=== PATIENT | male | born 1945 | race Caucasian/White ===

== ENCOUNTER 2016-07-04 17:10 | Emergency (ER) | payer OTHER ==
[2016-07-04 17:27] VITALS: BP 134/62; PULSE 75; RESP 18; TEMP 99; O2SAT 97
[2016-07-04] MEDS ORDERED: IBUPROFEN 600 MG TAB PO ONE (18:33)
--- NOTE | 2016-07-04 19:12 | UCPHY ---
H & P Time Seen by Provider: 07/04/16 19:03 Patient Type: Established HPI/ROS: 70-year-old male presents complaining of nasal congestion and sinus pain several days duration. Review of systems As per HPI-nasal congestion, sinus pain General no fever no chills no weakness HEENT no eye pain no eye discharge. No eye redness, no sore throat Respiratory no cough, no shortness of breath Cardiac no chest pain, no peripheral edema GI no abdominal pain, no diarrhea, no constipation, no nausea, no vomiting no flank pain, no hematuria, no dysuria Musculoskeletal no myalgias, no joint pain Heme no easy bruising, no easy bleeding Endo no polyuria, no polydipsia Skin no rashes, no pruritus Neuro no syncope, no dizziness, no headaches Psych is no suicidal ideation, no homicidal ideation Past Medical/Surgical History: Noncontributory Social History: Alcohol socially, denies drug use Smoking Status: Never smoked Physical Exam: 70-year-old male Alert and oriented nontoxic appearance, no acute distress afebrile Atraumatic normocephalic Extraocular muscles intact, anicteric Nares mild yellowish discharge, nasal turbinates swelling left greater than right erythematous Oropharynx mild erythema no tonsillar swelling no exudate no uvular deviation, tolerating own secretions Neck supple no lymphadenopathy Lungs clear to auscultation bilaterally Heart regular rate and rhythm Abdomen normoactive bowel sounds soft nontender Extremities no cyanosis clubbing or edema Skin no rash Constitutional: Initial Vital Signs Temperature (C) 37.2 C 07/04/16 17:25 Heart Rate 75 07/04/16 17:25 Respiratory Rate 18 07/04/16 17:25 Blood Pressure 134/62 H 07/04/16 17:25 O2 Sat (%) 97 07/04/16 17:25 O2 Delivery Mode Room Air Allergies/Adverse Reactions: No Known Allergies Allergy (Verified 05/08/15 14:56) Home Medications: Medication Instructions Recorded Amoxicillin/Clavulanate Pot 875 mg PO BID #14 tab 07/04/16 [Augmentin 875 MG TAB (*)] Fluticasone Nasal [Flonase Nasal 2 sprays NS DAILY 7 Days 07/04/16 [place]] Medical Decision Making ED Course/Re-evaluation: Patient seen and evaluated for nasal congestion, sinus pain Differential diagnosis considered URI, bronchitis, viral syndrome, sinusitis, pneumonia Physical exam consistent with sinusitis Impression sinusitis Plan Augmentin fluticasone decongestant Follow up with primary care physician - Data Points Medications Given: Discontinued Medications Ibuprofen (Motrin) 600 mg PO EDNOW ONE Stop: 07/04/16 18:34 Last Admin: 07/04/16 18:40 Dose: 600 mg Departure - Departure Disposition: Home, Routine, Self-Care Clinical Impression: Sinusitis Condition: Good Instructions: Sinusitis (ED) Referrals: Glen Mak DO [Primary Care Provider] - As per Instructions Prescriptions: Amoxicillin/Clavulanate Pot [Augmentin 875 MG TAB (*)] 875 mg PO BID #14 tab Fluticasone Nasal [Flonase Nasal [place]] 2 sprays NS DAILY 7 Days - PQRS PQRS Measurement: na
== END 2016-07-04 19:15 | disposition home or self-care (01) ==
LOC: CED 17:10
DX: J01.90 Acute sinusitis, unspecified (principal)
CPT/HCPCS: 99214-PO; G0463-PO

== ENCOUNTER 2016-10-24 12:06 | Emergency (ER) | payer OTHER ==
[2016-10-24 12:55] LABS: BACTERIA 4+ /hpf (NONE SEEN); MUCUS 4+ /lpf (NONE-1+); RBC,URINE 15-25 /hpf (0-3)
[2016-10-24] MEDS ORDERED: NS 1,000 ML IV ONE (14:05)
--- NOTE | 2016-10-24 14:07 | EDPHY ---
HPI/HX/ROS/PE/MDM Narrative: CHIEF COMPLAINT: Hematuria HPI: The patient is a 71-year-old who complains of hematuria this morning. He notes very mild right lower quadrant pain. No flank pain. Over the past 10 days the patient reports difficulty emptying his bladder. The patient has a history of kidney stone 10 years ago. He was able to pass the stone without complication. He denies fever, nausea, vomiting, or diarrhea. REVIEW OF SYSTEMS: Aside from elements discussed in the HPI, a comprehensive 10-point review of systems was reviewed and is negative. PMH: Kidney stone SOCIAL HISTORY: . 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 PHYSICAL EXAM: General: Patient is alert, in no acute distress. ENT: Eyes are normal to inspection. ENT inspection normal. Neck: Normal inspection. Full range of motion. Respiratory: No respiratory distress. Breath sounds normal bilaterally. Cardiovascular: Regular rate and rhythm. Strong peripheral pulses. Abdomen: The abdomen is nontender to palpation. There are no peritoneal signs. There are normal bowel sounds. Back: Normal to inspection. No tenderness to palpation. No CVA tenderness. Skin: Normal color. No rash. Warm and dry. Extremities: Normal appearance. Full range of motion. Neuro: Oriented x3. Normal motor function. Normal sensory function. ED Course: Patient with history of kidney stone, presents with hematuria that started this morning. On exam patient has a benign abdominal exam, no CVA tenderness. UA reveals RBCs, WBCs, and bacteria. Plan to check additional lab work. CT abdomen/pelvis was ordered to look for stone. Pt has normal WBC. Lab work is otherwise unremarkable. CT abdomen/pelvis is negative for stone. Plan to discharge patient home with urology followup. MDM: This patient presents with hematuria. I doubt UTI but will prescribe Keflex as a precaution given presence of some WBCs in the urine. No stone is seen. The patient will need outpatient Urology consult and was referred to on-call Urology. - Data Points Imaging Results: Imaging Impressions Abdomen/Pelvis CT 10/24/16 14:05 Impression: 1. Tiny nonobstructive calculus inferior pole of the right kidney. No evidence for hydronephrosis in either kidney or evidence for ureterolithiasis. 2. Benign renal cortical cysts left kidney. 3. Enlarged nonspecific prostate. 4. Other chronic findings as above. Results called and discussed with Dr. Lonnie Dobbins, on October 24, 2016 at 1521 hours. Attention: This CT examination is specifically designed to evaluate patients who are clinically suspected of having acute obstructive uropathy. This examination does not use radiographic contrast, and as such, provides only a limited evaluation of the abdomen, pelvis and retroperitoneum. If there is further clinical suspicion for pathological conditions other than obstructive uropathy, a complete CT evaluation of the abdomen and pelvis utilizing intravenous, oral, and rectal contrast should be considered. Imaging: Discussed imaging studies w/ illusionist Radiologist, I viewed and interpreted images myself Laboratory Results: Laboratory Results 10/24/16 14:10 10/24/16 14:10 10/24/16 10/24/16 10/24/16 14:10 14:10 14:10 WBC 5.94 10^3/uL 10^3/uL (3.80-9.50) RBC 5.13 10^6/uL 10^6/uL (4.40-6.38) Hgb 15.4 g/dL g/dL (13.7-17.5) Hct 45.2 % % (40.0-51.0) MCV 88.1 fL fL (81.5-99.8) MCH 30.0 pg pg (27.9-34.1) MCHC 34.1 g/dL g/dL (32.4-36.7) RDW 13.2 % % (11.5-15.2) Plt Count 136 10^3/uL L 10^3/uL (150-400) MPV 11.7 fL fL (8.7-11.7) Neut % (Auto) 50.0 % % (39.3-74.2) Lymph % (Auto) 37.0 % % (15.0-45.0) [place] % (Auto) 10.3 % % (4.5-13.0) Eos % (Auto) 1.7 % % (0.6-7.6) Baso % (Auto) 0.7 % % (0.3-1.7) Nucleat RBC Rel Count 0.0 % % (0.0-0.2) Absolute Neuts (auto) 2.97 10^3/uL 10^3/uL (1.70-6.50) Absolute Lymphs (auto) 2.20 10^3/uL 10^3/uL (1.00-3.00) Absolute Monos (auto) 0.61 10^3/uL 10^3/uL (0.30-0.80) Absolute Eos (auto) 0.10 10^3/uL 10^3/uL (0.03-0.40) Absolute Basos (auto) 0.04 10^3/uL 10^3/uL (0.02-0.10) Absolute Nucleated RBC 0.00 10^3/uL 10^3/uL (0-0.01) Immature Gran % 0.3 % % (0.0-1.1) Immature Gran # 0.02 10^3/uL 10^3/uL (0.00-0.10) PT 13.6 SEC SEC (12.0-15.0) INR 1.05 (0.83-1.16) APTT 23.0 SEC SEC (23.0-38.0) Sodium 143 mEq/L mEq/L (134-144) Potassium 4.2 mEq/L mEq/L (3.5-5.2) Chloride 110 mEq/L mEq/L (97-110) Carbon Dioxide 22 mEq/l mEq/l (22-31) Anion Gap 11 mEq/L mEq/L (8-16) BUN 29 mg/dL H mg/dL (7-23) Creatinine 1.0 mg/dL mg/dL (0.7-1.3) Estimated GFR > 60 Glucose 89 mg/dL mg/dL (70-100) Calcium 9.4 mg/dL mg/dL (8.5-10.4) Urine RBC Urine WBC Ur Epithelial Cells Urine Bacteria Urine Mucus 10/24/16 12:40 WBC RBC Hgb Hct MCV MCH MCHC RDW Plt Count MPV Neut % (Auto) Lymph % (Auto) [place] % (Auto) Eos % (Auto) Baso % (Auto) Nucleat RBC Rel Count Absolute Neuts (auto) Absolute Lymphs (auto) Absolute Monos (auto) Absolute Eos (auto) Absolute Basos (auto) Absolute Nucleated RBC Immature Gran % Immature Gran # PT INR APTT Sodium Potassium Chloride Carbon Dioxide Anion Gap BUN Creatinine Estimated GFR Glucose Calcium Urine RBC 15-25 /hpf H /hpf (0-3) Urine WBC 10-15 /hpf H /hpf (0-3) Ur Epithelial Cells TRACE /lpf /lpf (NONE-1+) Urine Bacteria 4+ /hpf H /hpf (NONE SEEN) Urine Mucus 4+ /lpf H /lpf (NONE-1+) Medications Given: Discontinued Medications Sodium Chloride (Ns) 1,000 mls @ 0 mls/hr IV EDNOW ONE; Wide Open PRN Reason: Protocol Stop: 10/24/16 14:06 Last Admin: 10/24/16 14:23 Dose: 1,000 mls General Time Seen by Provider: 10/24/16 13:58 Initial Vital Signs: Initial Vital Signs Temperature (C) 36.3 C 10/24/16 12:20 Heart Rate 58 L 10/24/16 12:20 Respiratory Rate 18 10/24/16 12:20 Blood Pressure 122/82 H 10/24/16 12:20 O2 Sat (%) 95 10/24/16 12:20 O2 Delivery Mode Room Air Allergies/Adverse Reactions: No Known Allergies Allergy (Verified 10/24/16 12:34) Home Medications: Medication Instructions Recorded Cephalexin [Keflex] 500 mg PO TID #21 cap 10/24/16 Departure - Departure Disposition: Home, Routine, Self-Care Clinical Impression: Hematuria Condition: Good Instructions: Hematuria (ED) Additional Instructions: Please take full course of antibiotics as directed. If you continue to have symptoms after 1 week please followup with a urologist. You have been referred to a urologist below. Return to the emergency department with severe abdominal pain, nausea, vomiting, or worsening symptoms. Referrals: Glen Mak DO [Primary Care Provider] - As per Instructions Donny Nobles MD [Medical Doctor] - 5-7 days, if not improved (Urologist) Prescriptions: Cephalexin [Keflex] 500 mg PO TID #21 cap Report Scribed for: Lonnie Dobbins Report Scribed by: Tara Jones Date of Report: 10/24/16 Time of Report: 14:06 Physician Review and Approval Statement: Portions of this note were transcribed by a ophthalmic medical technologist. I personally performed the history, physical exam, and medical decision-making; and confirmed the accuracy of the information in the transcribed note.
[2016-10-24 14:12] VITALS: RESP 16
[2016-10-24 14:18] LABS: % IMMATURE GRANULYOCYTES 0.3 % (0.0-1.1); ABSOLUTE IMMATURE GRANULOCYTES 0.02 10^3/uL (0.00-0.10); ADD DIFF? NO; ADD MORPH? NO; ADD SCAN? NO; ATYPICAL LYMPHOCYTE FLAG 10 (0-99); FRAGMENT RBC FLAG 0 (0-99); HEMATOCRIT 45.2 % (40.0-51.0); HEMOGLOBIN 15.4 g/dL (13.7-17.5); LEFT SHIFT FLG 0 (0-99); LIPEMIA HEMOLYSIS FLAG 90 (0-99); MEAN CELL HEMOGLOBIN CONCENTR. 34.1 g/dL (32.4-36.7); MEAN CELL VOLUME 88.1 fL (81.5-99.8); MEAN PLATELET VOLUME 11.7 fL (8.7-11.7); PLATELET CLUMPS FLAG 0 (0-99); PLATELET COUNT 136 10^3/uL (150-400); RED BLOOD CELL COUNT 5.13 10^6/uL (4.40-6.38); RED CELL DISTRIBUTION WIDTH 13.2 % (11.5-15.2)
[2016-10-24 14:26] LABS: INR 1.05 (0.83-1.16); PROTIME(PATIENT) 13.6 SEC (12.0-15.0)
[2016-10-24 14:29] LABS: ANION GAP 11 mEq/L (8-16); CALCIUM 9.4 mg/dL (8.5-10.4); CARBON DIOXIDE 22 mEq/l (22-31); CHLORIDE 110 mEq/L (97-110); GLOMERULAR FILTRATION RATE > 60; GLUCOSE 89 mg/dL (70-100); POTASSIUM 4.2 mEq/L (3.5-5.2); SODIUM 143 mEq/L (134-144)
[2016-10-24 15:48] VITALS: BP 135/74; PULSE 60; TEMP 97.7; O2SAT 96
== END 2016-10-24 15:47 | disposition home or self-care (01) ==
DX: R31.9 Hematuria, unspecified (principal); E86.9 Volume depletion, unspecified

== ENCOUNTER → 2017-03-15 | Outpatient (CLI) | payer OTHER, MEDICARE | LOC: BHFA 11:30 | PROVIDERS: ATTEND Internal Medicine Interventional Cardiology | DX: I34.1 Nonrheumatic mitral (valve) prolapse (principal) ==

== ENCOUNTER 2017-05-04 07:56 | Day surgery (SDC) | payer OTHER, MEDICARE ==
[2017-05-04] MEDS ORDERED: ASPIRIN EC 325 MG TAB PO ONE (07:59)
[2017-05-04] MEDS ORDERED: diphenhydrAMINE 25 MG CAP PO ONE (07:59)
[2017-05-04] MEDS ORDERED: FAMOTIDINE 20 MG TAB PO ONE (07:59)
[2017-05-04] MEDS ORDERED: DIAZEPAM 5 MG TAB PO ONE (07:59)
[2017-05-04] MEDS ORDERED: NS 1,000 ML IV ONE (07:59)
--- NOTE | 2017-05-04 08:17 | CPEKG ---
Heart Rate: 58 RR Interval: 1034 P-R Interval: 228 QRSD Interval: 112 QT Interval: 432 QTC Interval: 425 P [place]: -16 QRS [place]: -52 T Wave [place]: 9 EKG Severity - ABNORMAL ECG - EKG Impression: SINUS RHYTHM EKG Impression: FIRST DEGREE AV BLOCK EKG Impression: LEFT ANTERIOR FASCICULAR BLOCK EKG Impression: PROBABLE LEFT VENTRICULAR HYPERTROPHY EKG Impression: FIRST DEGREE AVB IS NEW IN COMPARISON TO PRIOR Electronically Signed By: Conrad Lora 07-May-2017 10:45:36
[2017-05-04 08:29] LABS: PLATELET COUNT 122 10^3/uL (150-400)
[2017-05-04 08:39] LABS: INR 1.02 (0.83-1.16); PROTIME(PATIENT) 13.6 SEC (12.0-15.0)
[2017-05-04] MEDS ORDERED: LIDOCAINE 1% 300 MG/30 ML SDV ONE (09:40)
[2017-05-04] MEDS ORDERED: fentaNYL 100 MCG/2 ML INJ ONE (09:40)
[2017-05-04] MEDS ORDERED: MIDAZOLAM 2 MG/2 ML VIAL ONE (09:41)
[2017-05-04] MEDS ORDERED: IOPAMIDOL (ISOVUE-370) 150 ML BTL IV ONE (09:41)
--- NOTE | 2017-05-04 09:47 | PDGENHP ---
History & Physical Chief Complaint: sob History of Present Illness: long standing sob worsening Relevant Physical Exam: see vs. s1/s2/ sys m llsb. rhonci bilat Cardiorespiratory Assessment: severe mr
[2017-05-04] MEDS ORDERED: ATROPINE SULFATE 1 MG/10 ML SYR ONE (10:24)
--- NOTE | 2017-05-04 10:42 | PDPROPOC ---
Sedation Plan of Care ASA Classification: ASA 1 Mallampati Score: Class 1 Mallampati Reference Image: Patient passed 3-3-2 rule?: Yes
--- NOTE | 2017-05-04 12:06 | CPIP ---
[f rep st] INVASIVE CARDIAC PROCEDURE PROCEDURE: Cardiac catheterization. INDICATION: The patient is having a mitral valve repair and this test is to assess his coronary nisreen lucian. The patient gave an informed consent and he knew all the options and wanted to proceed with this stud y. FINDINGS: Angiography left main coronary artery normal. Left anterior descending artery is entirely normal, except for some very minor intimal disease in the mid and distal segment. The diagonal branches are excellent. The circumflex coronary artery is somewhat diminutive but it is normal. The right coronary artery is normal and dominant. COMPLICATIONS: None. CONDITION AT THE END OF STUDY: Excellent. The procedure was done through the left groin at the request of the cardiovascular surgeon. The patient is doing excellently and I have reviewed the results with him and left messages for his w jeremy. Copy requested to: Rolando Flaherty [facility] /[id number]/MODL
== END 2017-05-04 14:58 | disposition home or self-care (01) ==
LOC: FCATH 07:56
PROVIDERS: ATTEND Internal Medicine
PROC: B2151ZZ Fluoroscopy of Left Heart using Low Osmolar Contrast (ICD-10-PCS; principal; 2017-05-04)
PROC: 4A023N7 Measurement of Cardiac Sampling and Pressure, Left Heart, Percutaneous Approach (ICD-10-PCS; principal; 2017-05-04)
PROC: B2111ZZ Fluoroscopy of Multiple Coronary Arteries using Low Osmolar Contrast (ICD-10-PCS; principal; 2017-05-04)
DX: Z01.810 Encounter for preprocedural cardiovascular examination (principal); I34.1 Nonrheumatic mitral (valve) prolapse; N40.0 Benign prostatic hyperplasia without lower urinary tract symptoms; Z86.010 Personal history of colon polyps
CPT/HCPCS: J0461; J1644; J2250; J3010; Q9967

== ENCOUNTER 2017-06-08 15:58 | Emergency (ER) | payer OTHER, MEDICARE ==
[2017-06-08 16:22] VITALS: RESP 16; O2SAT 93
--- NOTE | 2017-06-08 16:32 | EDPHY ---
H & P Time Seen by Provider: 06/08/17 16:09 HPI/ROS: This patient complains of urine leaking from the urethral area of his urinary catheter. He was discharged last night from [facility] 1 week after cardiac surgery for minimally invasive mitral valve repair. He had postop urinary obstruction that required the indwelling urinary catheter after 2 straight cath as, he had ongoing urinary retention that then resulted in the catheter placement. He is taking Flomax. A review of records reveals the patient did have hematuria/UTI treated with Keflex after being seen in [facility] emergency department in January of last year with resolution of symptoms. ROS: No fevers or chills. No other constitutional symptoms HEENT: He reports URI symptoms of coryza for couple months now. Pulmonary as a dry cough that is mild in intensity without any other pulmonary symptoms. Cardiovascular: He had an episode of rapid AFib treated with cardioversion while at [facility] after the surgery but reports no heart palpitations since conversion. He reports compliance with his metoprolol and Coumadin. GI: No abdominal pain. He does have mild constipation but did have a bowel movement today. : He denies any testicular pain or swelling. No flank pain currently. He has noticed hematuria. Integumentary: No skin rash. He reports the surgical wounds are healing. 10 point ROS is otherwise negative. Past Medical/Surgical History: Dyslipidemia. Cardiac catheterization in April of this year without significant coronary artery disease. AFib-converted Mitral valve replacement last week at [facility] Smoking Status: Never smoked Physical Exam: General Appearance: Alert, no distress. Eyes: Pupils equal and round no pallor or injection. ENT, Mouth: Mucous membranes moist. Respiratory: Rales, bilateral bases Cardiovascular: Regular rate and rhythm. No murmur gallop or rub. No JVD or peripheral edema is appreciated. Gastrointestinal: Abdomen is soft and nontender, no masses, bowel sounds normal. Back: No CVA tenderness : Urinary catheter is in place. No testicular swelling or tenderness. No active leaking at this time. No bloody urine is appreciated at the urethral meatus. Neurological: GCS 15 with no focal deficits. Skin: Warm and dry, no rashes. Patient has a clean dry intact right lateral chest surgical wound with no erythema or discharge. He has a right groin wound with Dermabond in place also clean dry intact. Musculoskeletal: Neck is supple nontender. Extremities are symmetrical, full range of motion. Psychiatric: Mood and affect are normal DIFFERENTIAL DIAGNOSIS: After history and physical exam differential diagnosis was considered for mucus plugging of urinary catheter, positional changes with walking as the episode occurred after walking, in sufficiently inflated catheter balloon, UTI, pneumonia, CHF Constitutional: Initial Vital Signs Temperature (C) 36.3 C 06/08/17 16:12 Heart Rate 69 06/08/17 16:12 Respiratory Rate 16 06/08/17 16:12 Blood Pressure 131/71 H 06/08/17 16:12 O2 Sat (%) 93 06/08/17 16:12 O2 Delivery Mode Room Air Allergies/Adverse Reactions: No Known Allergies Allergy (Verified 06/08/17 16:08) Home Medications: Medication Instructions Recorded Coumadin 06/08/17 Doxycycline Hyclate [Vibramycin 100 mg PO BID #14 cap 06/08/17 100 MG (*)] Enoxaparin [Lovenox 80 MG (*)] 06/08/17 Flomax 06/08/17 Furosemide [Lasix 20 MG (*)] 20 mg PO DAILY #15 tab 06/08/17 Lipitor 06/08/17 Melatonin 06/08/17 Metoprolol Succinate 06/08/17 MDM/Departure - MDM Diagnostics: 12 lead EKG performed at 5:14 p.m. Indication-possible CHF Sinus rhythm at 60 Intervals: P R of 276, QRS of 114, QTC of 460 [place]: P of -49, QRS of -46, T of 79 ST segments: Normal throughout When compared to prior EKG dated 05/04/2017 there is no significant interval change. First-degree AV block is also present on the prior EKG. Overall assessment sinus rhythm with first-degree AV block LVH Imaging Results: Imaging Impressions Chest X-Ray 06/08/17 16:41 Impression: 1. Prominent interstitial markings at the left lung base posteriorly. Consider atelectasis versus interstitial infiltrate. 2. Changes related to mitral valve surgery. 3. Blunting of the costophrenic angles posteriorly compatible with tiny effusions. Medications Given: Discontinued Medications Doxycycline Hyclate (Doxycycline Hyclate) 100 mg PO EDNOW ONE PRN Reason: Protocol Stop: 06/08/17 18:20 Last Admin: 06/08/17 18:48 Dose: 100 mg Furosemide (Lasix Injection) 20 mg IVP EDNOW ONE Stop: 06/08/17 18:19 Last Admin: 06/08/17 18:36 Dose: 20 mg ED Course/Re-evaluation: Discussion: While the patient complains primarily of leaking from the periurethral urinary catheter site, his presentation is notable for bilateral rales on exam and a cough concerning for possible postop pneumonia or CHF episode after rapid AFib. I counseled regarding this. Given these findings, will proceed with further workup. Labs reveal mild leukocytosis on CBC, this Bentyl panel is normal but BNP is elevated at the mid 300s, urinalysis positive for leukocytes and RBCs and leuk esterase positive. Cultures sent and pending. His INR is subtherapeutic 1.3 Patient's chest x-ray has bilateral effusions. Radiologist also notes mild interstitial findings at the left base on the lateral view. Given the patient' s cough mild leukocytosis and this finding there is concern for possible postop pneumonia the the findings are mild. Given the urinalysis findings an indwelling urinary catheter, I think that his mild positive UA findings for infection also warrant treatment. Will treat with doxycycline as this covers both lung and urine possibilities. Patient is also treated with Lasix 20 mg IV for his mild fluid overload. A plan to up the patient's Coumadin to 7.5 mg 2 times a week along with his current 5 mg doses. Also the doxycycline likely bump up his INR slightly. We counseled him regarding this. Overall this patient actually appears quite well clinically. His only abnormal vital sign is no 2 sat of 93%. His findings for pneumonia are mild but I do think warrant treatment. His UTI findings are also mild. He does not have clinical evidence of sepsis or other concerning findings. I think he will do well with oral antibiotic treatment. I spoke with Dr. Violet chow, the patient's cardiothoracic surgeon who was in agreement with the treatment plan patient the patient will have a close follow up with his surgeon. - Depart Disposition: Home, Routine, Self-Care Clinical Impression: Post-op pneumonia, Cystitis Fluid overload Qualifiers: Hypervolemia type: unspecified Qualified Code(s): E87.70 - Fluid overload, unspecified Condition: Good Instructions: Furosemide (By mouth), Doxycycline (By mouth), Urinary Tract Infection in Men (ED), Bacterial Pneumonia (ED) Additional Instructions: Diagnoses: 1. Postop pneumonia 2. Urinary tract infection 3. Fluid overload Plan: Lasix 20 mg a day in the morning. Doxycycline antibiotic for 1 week. Continue Coumadin, but increase to 7.5 mg 2 x's per week (including tomorrow's dose) Your INR slightly low 1.3. Call your surgeon desk about dosing plan on the Coumadin Follow-up with the cardiothoracic surgeon this week. Return to the emergency department for any significant worsening despite treatment plan. Prescriptions: Doxycycline Hyclate [Vibramycin 100 MG (*)] 100 mg PO BID #14 cap Furosemide [Lasix 20 MG (*)] 20 mg PO DAILY #15 tab Referrals: Glen Mak DO [Primary Care Provider] - As per Instructions
--- NOTE | 2017-06-08 17:16 | CPEKG ---
Heart Rate: 60 RR Interval: 1000 P-R Interval: 276 QRSD Interval: 114 QT Interval: 460 QTC Interval: 460 P [place]: -49 QRS [place]: -46 T Wave [place]: 79 EKG Severity - ABNORMAL ECG - EKG Impression: SINUS OR ECTOPIC ATRIAL RHYTHM EKG Impression: FIRST DEGREE AV BLOCK EKG Impression: LVH WITH IVCD, LAD AND SECONDARY REPOL ABNRM Electronically Signed By: Bhavesh Pedersen 08-Jun-2017 17:30:24
[2017-06-08 17:32] LABS: PLATELET COUNT 179 10^3/uL (150-400)
[2017-06-08 17:43] LABS: INR 1.36 (0.83-1.16); PROTIME(PATIENT) 16.6 SEC (12.0-15.0)
[2017-06-08] MEDS ORDERED: FUROSEMIDE 20 MG/2 ML VIAL IVP ONE (18:18)
[2017-06-08] MEDS ORDERED: DOXYCYCLINE HYCLATE 100 MG CAP/TAB PO ONE (18:19)
[2017-06-08 19:01] VITALS: BP 127/78; PULSE 59; TEMP 98.1
== END 2017-06-08 18:45 | disposition home or self-care (01) ==
LOC: CED 15:58
DX: J95.89 Other postprocedural complications and disorders of respiratory system, not elsewhere classified (principal); J18.9 Pneumonia, unspecified organism; E87.70 Fluid overload, unspecified; N30.90 Cystitis, unspecified without hematuria; B96.89 Other specified bacterial agents as the cause of diseases classified elsewhere; Z79.01 Long term (current) use of anticoagulants
CPT/HCPCS: 71046; 93005; 96374; 99285; J1940; 80048-PO; 81003-PO; 81015-PO; 83880-PO; 85025-PO; 85610-PO

== ENCOUNTER 2017-06-11 02:15 | Emergency (ER) | payer OTHER, MEDICARE ==
--- NOTE | 2017-06-11 02:30 | CPEKG ---
Heart Rate: 68 RR Interval: 882 P-R Interval: 252 QRSD Interval: 112 QT Interval: 424 QTC Interval: 451 P [place]: -38 QRS [place]: -46 T Wave [place]: 97 EKG Severity - ABNORMAL ECG - EKG Impression: SINUS RHYTHM EKG Impression: FIRST DEGREE AV BLOCK EKG Impression: LVH WITH IVCD, LAD AND SECONDARY REPOL ABNRM Electronically Signed By: Trinidad Carlin 11-Jun-2017 08:23:45
--- NOTE | 2017-06-11 03:09 | EDPHY ---
H & P Stated Complaint: L shoulder and neck pain, recent cardiac sx Time Seen by Provider: 06/11/17 02:42 HPI/ROS: HPI The patient presents with left-sided back pain which began at about 11:00 p.m. At night while he was lying in bed. The pain started slowly and feels like a pressure sensation that radiates upwards toward his left neck. It is been constant, somewhat improved with OxyContin which he took a now is nearly subsided. He says he has been coughing a lot and was recently diagnosed with a pneumonia a few days ago. As he also has a Kyle catheter in place for urinary retention. He has about 1 week status post minimally invasive mitral valve repair for mitral valve prolapse at [facility]. He denies any chest pain, shortness of breath, nausea, vomiting, dizziness, diaphoresis, leg swelling.. REVIEW OF SYSTEMS Constitutional: No fever, no chills. Eyes: No discharge. ENT: No sore throat. Cardiovascular: No chest pain, no palpitations. Respiratory: No cough, no shortness of breath. Gastrointestinal: No abdominal pain, no vomiting. Genitourinary: No hematuria. Musculoskeletal: No back pain. Skin: No rashes. Neurological: No headache. PMHx: Recent minimally invasive mitral valve repair performed at [facility], urinary retention Soc Hx: Housed PHYSICAL General Appearance: Alert, no distress Eyes: Pupils equal and round no pallor or injection ENT, Mouth: Mucous membranes moist Respiratory: There are no retractions, lungs are clear to auscultation with coarse breath sounds at the bases Cardiovascular: Regular rate and rhythm Gastrointestinal: Abdomen is soft and non-tender, no masses, bowel sounds normal Neurological: A&O, moves all extremities Skin: Warm and dry, no rashes Musculoskeletal: Neck is supple non tender, there is tenderness to the left- sided trapezius muscle group Extremities: symmetrical, full range of motion Psychiatric: Patient is oriented X 3, there is no agitation Source: Patient Exam Limitations: No limitations - Personal History Current Tetanus/Diphtheria Vaccine: Yes Tetanus Vaccine Date: less then 10 yrs - Medical/Surgical History Hx Asthma: No Hx Chronic Respiratory Disease: No Hx Diabetes: No Hx Cardiac Disease: No Hx Renal Disease: No Hx Cirrhosis: No Hx Alcoholism: No Hx HIV/AIDS: No Hx Splenectomy or Spleen Trauma: No Other PMH: knee surgery and tonsillectomy, cataract. kidney stones,[facility] - Social History Smoking Status: Never smoked Constitutional: Initial Vital Signs Temperature (C) 36.5 C 06/11/17 02:16 Heart Rate 73 06/11/17 02:16 Respiratory Rate 18 06/11/17 02:16 Blood Pressure 151/91 H 06/11/17 02:16 O2 Sat (%) 92 06/11/17 02:16 O2 Delivery Mode Room Air Allergies/Adverse Reactions: No Known Allergies Allergy (Verified 06/11/17 02:19) Home Medications: Medication Instructions Recorded Coumadin 06/08/17 Doxycycline Hyclate [Vibramycin 100 mg PO BID #14 cap 06/08/17 100 MG (*)] Enoxaparin [Lovenox 80 MG (*)] 06/08/17 Flomax 06/08/17 Furosemide [Lasix 20 MG (*)] 20 mg PO DAILY #15 tab 06/08/17 Lipitor 06/08/17 Melatonin 06/08/17 Metoprolol Succinate 06/08/17 Medical Decision Making - Diagnostics EKG Interpretation: EKG: Complete interpretation has been separately recorded in the [employer] archive. Summary impression: LVH, unchanged from prior EKG Imaging Results: Chest x-ray shows bilateral small pleural effusions, interpreted by me, radiology interpretation is pending. CT scan of chest with IV contrast demonstrates no pulmonary embolism, bilateral pleural effusions, discussed with Dr. Saul of Radiology. Imaging: Discussed imaging studies w/ call center support representative Radiologist, I viewed and interpreted images myself Differential Diagnosis: 71-year-old man, recent minimally invasive mitral valve repair for mitral valve prolapse, urinary retention, recent diagnosis of pneumonia presents with left- sided back pain for the last several hours. Symptoms have subsided somewhat since being in the emergency department. Labs were performed and were unremarkable except for D-dimer which was positive. He is on anticoagulation, so PE would be unlikely though a consideration. EKG is unremarkable. CT scan of his chest was performed and does demonstrate continued pleural effusions though no PE. I have discussed this with him. He could be suffering from pleurisy is the cause of his pain verses musculoskeletal pain. I doubt PE, ACS, aortic dissection given these findings. He will be discharged home with follow up with his primary care doctor. - Data Points Laboratory Results: Laboratory Results 06/11/17 02:35 06/11/17 02:35 06/11/17 06/11/17 06/11/17 02:35 02:35 02:35 WBC 9.83 10^3/uL H 10^3/uL (3.80-9.50) RBC 4.32 10^6/uL L 10^6/uL (4.40-6.38) Hgb 13.1 g/dL L g/dL (13.7-17.5) Hct 38.6 % L % (40.0-51.0) MCV 89.4 fL fL (81.5-99.8) MCH 30.3 pg pg (27.9-34.1) MCHC 33.9 g/dL g/dL (32.4-36.7) RDW 12.3 % % (11.5-15.2) Plt Count 221 10^3/uL 10^3/uL (150-400) MPV 11.2 fL fL (8.7-11.7) Neut % (Auto) 68.0 % % (39.3-74.2) Lymph % (Auto) 16.1 % % (15.0-45.0) [place] % (Auto) 10.5 % % (4.5-13.0) Eos % (Auto) 4.5 % % (0.6-7.6) Baso % (Auto) 0.4 % % (0.3-1.7) Nucleat RBC Rel Count 0.0 % % (0.0-0.2) Absolute Neuts (auto) 6.69 10^3/uL H 10^3/uL (1.70-6.50) Absolute Lymphs (auto) 1.58 10^3/uL 10^3/uL (1.00-3.00) Absolute Monos (auto) 1.03 10^3/uL H 10^3/uL (0.30-0.80) Absolute Eos (auto) 0.44 10^3/uL H 10^3/uL (0.03-0.40) Absolute Basos (auto) 0.04 10^3/uL 10^3/uL (0.02-0.10) Absolute Nucleated RBC 0.00 10^3/uL 10^3/uL (0-0.01) Immature Gran % 0.5 % % (0.0-1.1) Immature Gran # 0.05 10^3/uL 10^3/uL (0.00-0.10) PT 35.3 SEC H SEC (12.0-15.0) INR 3.56 H (0.83-1.16) APTT 63.9 SEC H SEC (23.0-38.0) D-Dimer 1.97 ug/mLFEU H ug/mLFEU (0.00-0.50) Sodium 139 mEq/L mEq/L (135-145) Potassium 4.4 mEq/L mEq/L (3.5-5.2) Chloride 107 mEq/L mEq/L (97-110) Carbon Dioxide 21 mEq/l L mEq/l (22-31) Anion Gap 11 mEq/L mEq/L (8-16) BUN 26 mg/dL H mg/dL (7-23) Creatinine 0.9 mg/dL mg/dL (0.7-1.3) Estimated GFR > 60 Glucose 101 mg/dL H mg/dL (70-100) Calcium 9.0 mg/dL mg/dL (8.5-10.4) Troponin I 0.015 ng/mL ng/mL (0.000-0.034) Medications Given: Discontinued Medications Acetaminophen (Tylenol) 650 mg PO EDNOW ONE Stop: 06/11/17 05:48 Last Admin: 06/11/17 05:52 Dose: 650 mg Ibuprofen (Motrin) 400 mg PO EDNOW ONE Stop: 06/11/17 05:48 Last Admin: 06/11/17 05:52 Dose: 400 mg Departure - Departure Disposition: Home, Routine, Self-Care Clinical Impression: Chest pain Qualifiers: Chest pain type: unspecified Qualified Code(s): R07.9 - Chest pain, unspecified Condition: Good Instructions: Pleurisy (ED) Additional Instructions: Please return to the emergency department if your worse in any way. Otherwise, please follow-up with your regular doctor. I recommend you take ibuprofen 400 mg with acetaminophen 650 mg every 6 hr until your pain improves. Referrals: Glen Mak DO [Primary Care Provider] - As per Instructions
[2017-06-11 03:17] LABS: PLATELET COUNT 221 10^3/uL (150-400)
[2017-06-11 03:28] LABS: INR 3.56 (0.83-1.16); PROTIME(PATIENT) 35.3 SEC (12.0-15.0)
[2017-06-11] MEDS ORDERED: IOPAMIDOL (ISOVUE 370) 100 ML BTL IV ONE (04:07)
[2017-06-11 04:14] VITALS: RESP 20
[2017-06-11] MEDS ORDERED: ACETAMINOPHEN 325 MG TAB PO ONE (05:47)
[2017-06-11] MEDS ORDERED: IBUPROFEN 200 MG TAB PO ONE (05:47)
[2017-06-11 05:59] VITALS: BP 125/77; PULSE 64; TEMP 97.9; O2SAT 95
== END 2017-06-11 05:59 | disposition home or self-care (01) ==
DX: R07.9 Chest pain, unspecified (principal)
CPT/HCPCS: 71046; 71275; 93005; 99285; Q9967

== ENCOUNTER 2017-06-15 23:41 | Emergency (ER) | payer OTHER, MEDICARE ==
--- NOTE | 2017-06-16 00:45 | EDPHY ---
H & P Time Seen by Provider: 06/16/17 00:03 HPI/ROS: This patient presents with blockage of his urinary catheter that was placed earlier today by [facility]. This patient had minimally invasive mitral valve repair at [facility] in [place] on or around May 31. I saw him here in the emergency department on June 08 with catheter blockage and possible UTI treated with doxycycline. He also had respiratory symptoms at that time and evidence of mild fluid overload. Started him on low- dose Lasix after consultation with this cardiothoracic surgeon and a week of doxycycline antibiotic. He subsequently had his catheter D seed Monday of this week, 3 days prior to arrival and 1 large hike on Monday-yesterday developing gross hematuria thereafter. He subsequently developed lower urinary obstruction and went to [facility] for catheter placement with a 3 way catheter. His INR had been low-subtherapeutic when I saw him here last week and we advised him to take a higher dose 2 days a week. He then had an INR of 4.6 and was advised to hold his Coumadin Monday and Monday and take a 2.5 mg Coumadin dose Monday. He will have an INR recheck later today at [facility]. Shortly after her arrival here in the emergency department our nurse was able to flush his catheter and this removed the clot returning flow to the catheter without significant retention. The patient finished the 1 week course of doxycycline that I prescribed last week today. ROS: Constitutional: No fevers. Pulmonary: His cough has resolved. Cardiovascular: He was seen today by his cardiothoracic surgeon who instructed him to stop his Lasix. His weight is down compared to prior to surgery at this time. He has no leg edema recently. No chest pain or lightheadedness. GI: No complaints : No testicular pain. No flank pain. 7 point ROS is otherwise negative. Past Medical/Surgical History: Minimally invasive mitral valve repair at [facility] 05/31/2017 Subsequent lower urinary obstruction treated with catheter x2. While he had leukocytes, bacteria and hematuria on his visit here on 06/08/2017, his urinary culture was negative. Smoking Status: Never smoked Physical Exam: General Appearance: Alert, no distress. Eyes: Pupils equal and round no pallor or injection. ENT, Mouth: Mucous membranes moist. Respiratory: Soft rales bilateral bases similar to his prior visit. These nearly clear with deep breaths but not entirely. Otherwise clear to auscultation with no wheezing. No rhonchi. Cardiovascular: Regular rate and rhythm. No significant murmur, gallop or rub. Gastrointestinal: Abdomen is soft and nontender, no masses, bowel sounds normal. : Urine catheter in place. No testicular or epididymal tenderness or swelling. No suprapubic tenderness. Catheter is draining pink urine Neurological: GCS 15 Skin: Warm and dry, no rashes. Musculoskeletal: Neck is supple nontender. Extremities are symmetrical, full range of motion. Psychiatric: Mood and affect normal DIFFERENTIAL DIAGNOSIS: After history and physical exam differential diagnosis was considered for blocked urinary catheter, UTI Constitutional: Initial Vital Signs Temperature (C) 36.3 C 06/15/17 23:52 Heart Rate 56 L 06/15/17 23:52 Respiratory Rate 18 06/15/17 23:52 Blood Pressure 159/86 H 06/15/17 23:52 O2 Sat (%) 96 06/15/17 23:52 O2 Delivery Mode Room Air Allergies/Adverse Reactions: No Known Allergies Allergy (Verified 06/15/17 23:57) Home Medications: Medication Instructions Recorded Coumadin 06/08/17 Flomax 06/08/17 Furosemide [Lasix 20 MG (*)] 20 mg PO DAILY #15 tab 06/08/17 Lipitor 06/08/17 Melatonin 06/08/17 Metoprolol Succinate 06/08/17 Amiodarone HCl 06/15/17 MDM/Departure - MDM ED Course/Re-evaluation: Urine structure attributable to blood clot-cleared. Review of the patient's urinalysis reveals findings some also down occult to his urinalysis a week ago. Given that that culture was negative, will hold on further antibiotics at this time. I think that the soft rales at the bases on this patient baseline for him. His cough has resolved and not think he has pneumonia at this time. Other than the rales, no evidence of CHF at this time. I counseled the patient to keep the catheter in over the weekend. He is scheduled to see [facility] in follow-up on Monday. He will go to the [facility] tomorrow to recheck his INR. He understands need to return emergency department should he develop any significant recurrence symptoms despite the treatment plan. Answered all his questions prior to discharge home. - Depart Disposition: Home, Routine, Self-Care Clinical Impression: Obstruction of urinary catheter Qualifiers: Encounter type: initial encounter Qualified Code(s): T83.098A - Other mechanical complication of other urinary catheter, initial encounter Condition: Good Instructions: Kyle Catheter Placement and Care (ED) Additional Instructions: Diagnosis: Urinary catheter obstruction-resolved Plan: Drink plenty fluids Continue current medications To the lab tomorrow to recheck your INR Follow up with Urology on Monday Return emergency department if he developed fevers, blockage of her catheter despite the plan or other concerns. Referrals: Patient,NotPresent [Primary Care Provider] - As per Instructions
[2017-06-16 01:04] VITALS: BP 148/78; PULSE 58; RESP 16; TEMP 98.1; O2SAT 97
== END 2017-06-16 01:04 | disposition home or self-care (01) ==
LOC: CED 23:41
PROC: 0T9B70Z Drainage of Bladder with Drainage Device, Via Natural or Artificial Opening (ICD-10-PCS; principal; 2017-06-15)
DX: T83.098A Other mechanical complication of other urinary catheter, initial encounter (principal); Z79.01 Long term (current) use of anticoagulants; Y82.8 Other medical devices associated with adverse incidents
CPT/HCPCS: 81003-PO; 81015-PO

== ENCOUNTER 2017-06-16 15:39 | Emergency (ER) | payer OTHER, MEDICARE ==
[2017-06-16 15:54] VITALS: BP 120/77; PULSE 64; RESP 16; TEMP 97.9; O2SAT 96
--- NOTE | 2017-06-16 16:18 | EDPHY ---
H & P Stated Complaint: Clots in richard catheter Time Seen by Provider: 06/16/17 15:56 HPI/ROS: CHIEF COMPLAINT: Obstructed urinary catheter HISTORY OF PRESENT ILLNESS: This is a 71-year-old male with a recent history of urinary retention. He underwent minimally invasive mitral valve repair at [facility] on 06/01/2017 and left the hospital 6 days later with an indwelling Richard because of urinary retention. That Richard was discontinued this past Monday, today is Monday, and he did fine for a couple of days. However, on Monday he developed hematuria and subsequent urinary retention. He was seen at [facility] and a 3 way catheter was placed. He was seen in the emergency department last night requiring irrigation of this catheter because of blood clots. He presents today with clots seen in the drainage tube , causing obstruction. He is draining around the catheter. He has not had fever. He does not have abdominal pain. Of note, he was treated for urinary tract infection last week and completed a course of doxycycline yesterday. A urine culture was sent yesterday. It is without growth for the past 18 hours. Also of note, he is on Coumadin. He has had some difficulty adjusting his Coumadin dose to obtain the desired INR. INR on June 11 was 3.56, INR on June 12 was 4.39. INR today, just prior to his presentation, was 3.5. He has seen his brine supervisor and has been advised to hold his Coumadin for 2 days and then to begin 2.5 mg on the 3rd day. REVIEW OF SYSTEMS: A ten point review of systems was performed and is negative with the exception of the items mentioned in the HPI. Past medical/surgical history: 1. BPH 2. Minimally invasive mitral valve repair on . 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 He does not use tobacco products. General Appearance: Alert. Vital signs reviewed. Respiratory: Lungs are clear to auscultation; no wheezes, rales, or rhonchi. Cardiovascular: Regular rate and rhythm; no murmur, rub, or gallop. Gastrointestinal: Abdomen is soft and nontender, no suprapubic tenderness, no masses or organomegaly, bowel sounds normal. Genitalia: Richard catheter in place. Some clots noted in the drainage tube. Skin: Warm and dry, no rashes on exposed skin, normal color. Back: Nontender to palpation over the thoracolumbar spine. No CVAT. Extremities: No lower extremity edema, no calf tenderness or swelling. Neurological: Alert and oriented. Moving all four extremities easily and equally. Psychiatric: Normal affect. - Personal History Tetanus Vaccine Date: less then 10 yrs - Medical/Surgical History Hx Asthma: No Hx Chronic Respiratory Disease: No Hx Diabetes: No Hx Cardiac Disease: Yes Hx Renal Disease: No Hx Cirrhosis: No Hx Alcoholism: No Hx HIV/AIDS: No Hx Splenectomy or Spleen Trauma: No Other PMH: knee surgery and tonsillectomy, cataract. kidney stones,mitral valve repaired 06/01/2017 @ [facility] with cardioversion 06/07/2017, urinary retention. - Social History Smoking Status: Never smoked Constitutional: Initial Vital Signs Temperature (C) 36.6 C 06/16/17 15:49 Heart Rate 64 06/16/17 15:49 Respiratory Rate 16 06/16/17 15:49 Blood Pressure 120/77 06/16/17 15:49 O2 Sat (%) 96 06/16/17 15:49 O2 Delivery Mode Room Air Allergies/Adverse Reactions: No Known Allergies Allergy (Verified 06/15/17 23:57) Home Medications: Medication Instructions Recorded Coumadin 06/08/17 Flomax 06/08/17 Melatonin 06/08/17 Metoprolol Succinate 06/08/17 Amiodarone HCl 06/15/17 Medical Decision Making ED Course/Re-evaluation: Urinary catheter is blocked secondary to blood clots. He has a [address] This will be irrigated. Urine culture done yesterday is without growth. Catheter was irrigated by the nursing staff. There was good flow of urine following irrigation. Urine is very mildly pink tinged. Patient is comfortable returning home. Richard catheter care was reviewed with him. Differential Diagnosis: Considered a differential diagnosis that includes but is not limited to urinary retention, Richard catheter dysfunction, Richard catheter obstruction by clots, coagulopathy, urinary tract infection, and pyelonephritis. Departure - Departure Disposition: Home, Routine, Self-Care Clinical Impression: Richard catheter problem Qualifiers: Encounter type: subsequent encounter Qualified Code(s): T83.9XXD - Unspecified complication of genitourinary prosthetic device, implant and graft, subsequent encounter Condition: Good Instructions: Richard Catheter Placement and Care (ED) Additional Instructions: Follow up at [facility] as planned. Return for any further problems or any concerning changes such as fever. Referrals: Glen Mak DO [Primary Care Provider] - As per Instructions
== END 2017-06-16 16:55 | disposition home or self-care (01) ==
LOC: CED 15:39
PROC: 0T9B70Z Drainage of Bladder with Drainage Device, Via Natural or Artificial Opening (ICD-10-PCS; principal; 2017-06-16)
DX: T83.9XXD Unspecified complication of genitourinary prosthetic device, implant and graft, subsequent encounter (principal); Z79.01 Long term (current) use of anticoagulants; Y82.8 Other medical devices associated with adverse incidents